=== PATIENT | female | born 1980 | race Caucasian/White ===

== ENCOUNTER 2023-02-27 17:03 | Emergency (ER) | payer OTHER ==
[2023-02-27 19:08] VITALS: BP 113/67; PULSE 68; RESP 18; TEMP 97.8; BMI 18.2
[2023-02-27] MEDS ORDERED: IBUPROFEN 600 MG TABLET (FP) PO ONE ×2 (20:27→20:59)
== END 2023-02-27 21:35 | disposition home or self-care (01) ==
LOC: FER 17:03
DX: M79.675 Pain in left toe(s) (principal); R22.42 Localized swelling, mass and lump, left lower limb; S90.112A Contusion of left great toe without damage to nail, initial encounter; W20.8XXA Other cause of strike by thrown, projected or falling object, initial encounter
CPT/HCPCS: 73630-TC-LT; 99283-25

== ENCOUNTER 2023-03-01 08:35 | Emergency (ER) | payer OTHER ==
[2023-03-01] MEDS ORDERED: LIDOCAINE HCL 2% (50ML VIAL) SQ ONE (09:23)
[2023-03-01] MEDS ORDERED: LIDOCAINE HCL 2% (20ML MULTI-DOSE VIAL) ONE (09:24)
[2023-03-01 09:43] VITALS: BP 121/72; PULSE 80; RESP 18; TEMP 98; BMI 20.5
== END 2023-03-01 10:12 | disposition home or self-care (01) ==
LOC: FER 08:35
PROC: 0H9RXZZ Drainage of Toe Nail, External Approach (ICD-10-PCS; principal; 2023-03-01)
DX: M79.675 Pain in left toe(s) (principal); S90.212A Contusion of left great toe with damage to nail, initial encounter; R22.42 Localized swelling, mass and lump, left lower limb; W20.8XXA Other cause of strike by thrown, projected or falling object, initial encounter
CPT/HCPCS: 99282-25